=== PATIENT | female | born 1985 | race Native Hawaiian/Other Pacific Islander ===

== ENCOUNTER 2016-11-13 16:55 | Emergency (ER) | payer OTHER ==
[~2016-11-13] VITALS: Ht 154.9 cm; Wt 40.4 kg
[2016-11-13 19:17] LABS: PLATELET COUNT 140 K/uL (152-353)
[2016-11-13 19:22] LABS: POTASSIUM 3.2 mmol/L (3.6-5.2); SODIUM 136 mmol/L (136-145)
[2016-11-13 23:00] VITALS: BP 100/59; TEMP 98.9
== END 2016-11-13 23:00 | disposition home or self-care (01) ==
LOC: ED 16:55
DX: R10.9 Unspecified abdominal pain (principal); K29.00 Acute gastritis without bleeding
CPT/HCPCS: 36415; 80053; 81000; 82150; 83690; 85027; 96360; 96361; 96374; 99284; J2405; Q9963